=== PATIENT | female | born 1965 | race Caucasian/White ===

== ENCOUNTER 2017-11-25 16:30 | Emergency (ER) | payer BC ==
[2017-11-25] MEDS ORDERED: NORMAL SALINE 1000 ML 500 ML IV ONE (18:17)
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
[2017-11-25 18:29] LABS: PROTHROMBIN TIME 13.7 SEC (11.4-15.4)
[2017-11-25 18:40] LABS: ABSOLUTE EOSINOPHILS # (AUTO) 0.1 10^3/uL (0.0-0.6); ABSOLUTE LYMPHOCYTES (AUTO) 1.1 10^3/uL (0.5-4.7); ABSOLUTE MONOCYTES (AUTO) 0.2 10^3/uL (0.1-1.4); ABSOLUTE NEUT (AUTO) 2.4 10^3/uL (1.7-8.2); BASOPHILS % (AUTO) 0.6 % (0-2); EOSINOPHILS % (AUTO) 3.4 % (0-6); HEMATOCRIT 34.2 % (36.0-47.0); HEMOGLOBIN 11.4 g/dL (12.0-15.5); LYMPHOCYTES % (AUTO) 28.3 % (13-45); MEAN CORPUSCULAR HEMOGLOBIN 26.8 pg (27.0-33.4); MEAN CORPUSCULAR HGB CONC 33.3 g/dL (32.0-36.0); MEAN CORPUSCULAR VOLUME 81 fl (80-97); MONOCYTES % (AUTO) 5.9 % (3-13); PLATELET COUNT 134 10^3/uL (150-450); RED BLOOD COUNT 4.25 10^6/uL (3.72-5.28); RED CELL DISTRIBUTION WIDTH 14.1 % (11.5-14.0); SEGMENTED NEUTROPHILS % (AUTO) 61.8 % (42-78); TOTAL CELLS COUNTED % (AUTO) 100 %; WHITE BLOOD COUNT 3.8 10^3/uL (4.0-10.5)
[2017-11-25 18:54] LABS: ALANINE AMINOTRANSFERASE 21 U/L (9-52); ALBUMIN 3.7 g/dL (3.5-5.0); ALKALINE PHOSPHATASE 91 U/L (38-126); ANION GAP 14 (5-19); ASPARTATE AMINO TRANSFERASE 21 U/L (14-36); BILIRUBIN,DIRECT 0.3 mg/dL (0.0-0.4); BILIRUBIN,TOTAL 0.3 mg/dL (0.2-1.3); BLOOD UREA NITROGEN 20 mg/dL (7-20); CALCIUM 9.6 mg/dL (8.4-10.2); CARBON DIOXIDE 24 mmol/L (22-30); CHLORIDE 109 mmol/L (98-107); GLUCOSE 120 mg/dL (75-110); POTASSIUM 3.9 mmol/L (3.6-5.0); SODIUM 146.5 mmol/L (137-145); TOTAL PROTEIN 6.4 g/dL (6.3-8.2)
[2017-11-25 18:57] LABS: ACETAMINOPHEN < 10 ug/mL (10-30); SALICYLATE < 1.0 mg/dL (2.0-20.0)
[2017-11-25 19:04] LABS: URINE AMPHETAMINES SCREEN NEGATIVE; URINE BARBITURATES SCREEN NEGATIVE; URINE BENZODIAZEPINES SCREEN UNCONFIRMED POSITIVE; URINE COCAINE SCREEN NEGATIVE; URINE METHADONE SCREEN NEGATIVE; URINE PHENCYCLIDINE SCREEN NEGATIVE
[2017-11-25 19:16] LABS: URINE MARIJUANA (THC) SCREEN NEGATIVE
--- NOTE | 2017-11-25 20:38 | EKG REPORT ---
SEVERITY:- BORDERLINE ECG - SINUS RHYTHM BORDERLINE T ABNORMALITIES, ANT-LAT LEADS : Confirmed by: Naresh Dao MD 25-Nov-2017 20:37:41
--- NOTE | 2017-11-26 07:26 | EKG REPORT ---
SEVERITY:- BORDERLINE ECG - SINUS RHYTHM BORDERLINE T ABNORMALITIES, ANT-LAT LEADS : Confirmed by: Naresh Dao MD 26-Nov-2017 07:25:19
[2017-11-26] MEDS ORDERED: IBUPROFEN 600 MG TABLET PO ONE (07:56)
--- NOTE | 2017-11-26 09:33 | ER Document Report ---
Doctor's Note Notes: 11/26/17 09:30 52-year-old female with admission yesterday secondary to allegedly around 3:30 PM ingesting what was estimated to be #82 mg Xanax tablets, #30 Ambien tablets and #27 unknown milligram strength Prozac tablets. Vital signs are stable. Labs as recorded. We are awaiting psychology/psychiatry evaluation. 11/26/17 11:41 Patient was attempted to change the channel and slipped falling on her knees with a laceration to her left knee. She has a prosthetic knee to the right knee. A sitter was present. No head trauma noted. Tetanus is not up-to-date. We will perform x-rays of bilateral knees and suture the left knee appropriately. 11/26/17 13:47 PROCEDURE: Using 4-0 Prolene I prepped and draped the area and irrigated with 500 cc of normal saline. I used ChloraPrep to clean the area. I do not see any foreign bodies. I then used 4-0 Prolene after numbing the area with 1% lidocaine with epinephrine and placed 4 interrupted sutures to the left knee. Knee laceration has been repaired.
[2017-11-26] MEDS ORDERED: LIDOCAINE 1%/EPINEPHRINE INJ 20 ML VIAL INJ ONE (11:40)
[2017-11-26] MEDS ORDERED: DIPH/PERTUSS(ACELL)/TETANUS VAC/PF 0.5 ML SYR (>=10YO) IM ONE (11:40)
--- NOTE | 2017-11-26 12:32 | RADIOLOGY REPORT (SQ) ---
EXAM DESCRIPTION: KNEE RIGHT 4 VIEWS COMPLETED DATE/TIME: 11/26/2017 12:18 pm REASON FOR STUDY: 46, fall COMPARISON: None. NUMBER OF VIEWS: Four views. TECHNIQUE: AP, lateral, and both oblique radiographic images acquired of the right knee. LIMITATIONS: None. FINDINGS: MINERALIZATION: Normal. BONES: No acute fracture or dislocation. JOINT: Arthroplasty in place. Some lucency about the femoral portion. SOFT TISSUES: No opaque foreign bodies of the soft tissues. OTHER: No other significant finding. IMPRESSION: Arthroplasty right knee. No acute fractures. TECHNICAL DOCUMENTATION: JOB ID: [id number] [employer]- All Rights Reserved Reading location - IP/workstation name: [email or web address]
--- NOTE | 2017-11-26 12:34 | RADIOLOGY REPORT (SQ) ---
EXAM DESCRIPTION: KNEE LEFT 4 VIEW COMPLETED DATE/TIME: 11/26/2017 12:18 pm REASON FOR STUDY: 46, fall COMPARISON: None. NUMBER OF VIEWS: Four views. TECHNIQUE: AP, lateral, and both oblique radiographic images acquired of the left knee. LIMITATIONS: None. FINDINGS: MINERALIZATION: Normal. BONES: No acute fracture or dislocation. No worrisome bone lesions. JOINT: Joint spaces well-maintained. SOFT TISSUES: No opaque foreign bodies of the soft tissues. OTHER: No other significant finding. IMPRESSION: Nothing acute. No fracture identified. TECHNICAL DOCUMENTATION: JOB ID: [id number] [employer]- All Rights Reserved Reading location - IP/workstation name: [email or web address]
[2017-11-26] MEDS: OLANZAPINE 5 MG TABLET PO SCH ×2 (13:00→18:30)
[2017-11-26] MEDS: BENZTROPINE MESYLATE 1 MG TABLET PO SCH (13:00)
[2017-11-26] MEDS ORDERED: BACITRACIN ZINC OINTMENT 15 GM TP ONE (13:48)
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
[2017-11-27] MEDS: CHLORPROMAZINE HCL 50 MG TABLET PO PRN ×2 (01:06→22:04)
[2017-11-27] MEDS ORDERED: BENZTROPINE MESYLATE 1 MG TABLET PO ONE (10:15)
[2017-11-27] MEDS ORDERED: OLANZAPINE 5 MG TABLET PO ONE ×2 (10:15→18:00)
--- NOTE | 2017-11-27 10:15 | ER Document Report ---
Doctor's Note Notes: 11/27/17 10:13 Rounds: Chart reviewed and patient interviewed. Patient being evaluated for taking a drug overdose. She says that she took 82 Xanax, 30 Ambien, and 27 Prozac. She is ambulatory and shows no signs of an overdose at this time. Patient says it did name seem to phase her. I question if she took anywhere near the amount of pills that she said. Patient complains of feeling depressed. Labs were all essentially normal except for being positive for benzos in her urine drug screen. Vital signs were all essentially normal. Blood pressure was 100/57, the patient does not exhibit signs of shock. Patient appears to be medically stable for transfer or discharge. Paddy Paris MD
--- NOTE | 2017-11-27 17:00 | PSYCHOLOGICAL NOTE ---
Psych Note - Psych Note Psych Note: Reason for consult: intentional overdose, suicidal ideation consent permissions: Janel, daughter, 52-year-old female presents with overdose. No history somewhat limited as patient is altered. Allegedly around 3:30 PM or so, patient ingested what is estimated to be #82 mg Xanax tablets, #30 Ambien tablets and #27 unknown milligram strength Prozac tablets. Patient did this and he stated attempted suicide. Clinician conducted checking with patient Patient is awoken by clinician. Patient proceeded to become very tearful stating that she had no reason to live. Patient starts discussing how she is upset that her daughter has someone just like her father. Clinician was notified by attending nurse that patient was attempting to stab herself with her fork from lunch. Behavior health team spoke with patient's daughter, Janel, who discloses that she will be able to arrive at [facility] ED on Friday. Patient's daughter is taking board exams on Friday (tomorrow). Medication recommendations per [facility]'s contracted psychiatrist Dr. Aubrie MD are as follows: 1. Zyprexa 5 mg twice daily for mood stabilization 2. Cogentin 1 mg daily for prevention of any possible side effects from Zyprexa 3. Thorazine 50 mg every 8 hours as needed for aggression and agitation Diagnosis 296.80 (F31.9) unspecified bipolar and related disorder 293.83 (F06.34) Depressive disorder due to another medical Condition; major depressive-like episode 209.81 (F343.10) post manic stress disorder per history provided by patient 291.9 (F10.99) unspecified alcohol related disorder; 2 years sober Impression/plan: Patient is recommended to continue under IVC. While patient is demonstrating some improvement in presentation patient is not stable and has moments of attempting self-harm. Multiple referrals to psychiatric hospitals have been submitted. Dr. Domingo was consulted on the care and management of this patient; attending physician is in agreement with recommendations and disposition.
--- NOTE | 2017-11-28 10:14 | ER Document Report ---
Doctor's Note Notes: 11/28/17 10:13 Rounds: Chart reviewed and patient sleeping soundly so not awakened. Patient's vital signs have been stable. Her blood pressures run a slight bit low, most recent being 102/58. Labs were all essentially normal. Patient has recovered from her overdose. Patient appears to be medically stable for transfer or discharge. Patient remains under IVC at this time. Paddy Paris MD 11/28/17 11:29 Patient's blood pressure reportedly in the 90s, but patient is asymptomatic. I encouraged the patient to drink lots of fluids, but she says she cannot do it so we are going to run 2 L of saline and IV. Patient does not appear clinically to be in any form of shock. Paddy Paris MD
[2017-11-28] MEDS: BENZTROPINE MESYLATE 1 MG TABLET PO SCH (10:54)
[2017-11-28] MEDS: OLANZAPINE 5 MG TABLET PO SCH ×2 (10:54→17:55)
--- NOTE | 2017-11-28 12:59 | PSYCHOLOGICAL NOTE ---
Psych Note - Psych Note Psych Note: Reason for consult: intentional overdose, suicidal ideation consent permissions: Janel, daughter, 52-year-old female presents with overdose. No history somewhat limited as patient is altered. Allegedly around 3:30 PM or so, patient ingested what is estimated to be #82 mg Xanax tablets, #30 Ambien tablets and #27 unknown milligram strength Prozac tablets. Patient did this and he stated attempted suicide. Clinician conducted checking with patient Patient is awoken by clinician. Patient proceeded to become very tearful stating that she had no reason to live. Patient starts discussing how she is upset that her daughter has someone just like her father. Clinician was notified by attending nurse that patient was attempting to stab herself with her fork from lunch. Behavior health team spoke with patient's daughter, Janel, who discloses that she will be able to arrive at [facility] on Friday. Patient's daughter is taking board exams on Friday (tomorrow). Medication recommendations per [facility]'s contracted psychiatrist Dr. Aubrie MD are as follows: 1. Zyprexa 5 mg twice daily for mood stabilization 2. Cogentin 1 mg daily for prevention of any possible side effects from Zyprexa 3. Thorazine 50 mg every 8 hours as needed for aggression and agitation Diagnosis 296.80 (F31.9) unspecified bipolar and related disorder 293.83 (F06.34) Depressive disorder due to another medical Condition; major depressive-like episode 209.81 (F343.10) post manic stress disorder per history provided by patient 291.9 (F10.99) unspecified alcohol related disorder; 2 years sober Impression/plan: Patient is recommended to continue under IVC. While patient is demonstrating some improvement in presentation patient is not stable and has moments of attempting self-harm. Multiple referrals to psychiatric hospitals have been submitted. Dr. Domingo was consulted on the care and management of this patient; attending physician is in agreement with recommendations and disposition.
--- NOTE | 2017-11-28 16:37 | PSYCHOLOGICAL NOTE ---
Psych Note - Psych Note Psych Note: Reason for consult: intentional overdose, suicidal ideation consent permissions: Janel, daughter, 52-year-old female presents with overdose. No history somewhat limited as patient is altered. Allegedly around 3:30 PM or so, patient ingested what is estimated to be #82 mg Xanax tablets, #30 Ambien tablets and #27 unknown milligram strength Prozac tablets. Patient did this and he stated attempted suicide. Clinician conducted checking with patient Clinician notes patient's presentation is greatly improved. Patient does not become tearful and is able to carry on a linear and organized conversation. Patient does disclose that she is been having a very difficult time while living with her other daughter. Patient reports "I do not want to I just want to be able to go home and stay with my other daughter (Janel)." Patient was able to discuss that her daughter Janel is currently taking a bar exam and will be driving to [facility] ED tomorrow. Patient has showered and while patient was talking with clinician attending nurse was working on getting knots out of the patient's hair; patient was sitting very calmly during that process. Medication recommendations per [facility]'s contracted psychiatrist Dr. Aubrie MD are as follows: 1. Zyprexa 5 mg twice daily for mood stabilization 2. Cogentin 1 mg daily for prevention of any possible side effects from Zyprexa 3. Thorazine 50 mg every 8 hours as needed for aggression and agitation- Please hold for blood pressure concerns Diagnosis 296.80 (F31.9) unspecified bipolar and related disorder 293.83 (F06.34) Depressive disorder due to another medical Condition; major depressive-like episode 209.81 (F343.10) post manic stress disorder per history provided by patient 291.9 (F10.99) unspecified alcohol related disorder; 2 years sober Impression/plan: Patient is recommended to continue under IVC. Patient has demonstrated positive improvement with forward thinking of wanting to go and live with her other daughter Janel. Patient did not become tearful and was able to carry on organized linear conversation. Patient's daughter Janel will be driving from [place] and will arrive tomorrow at [facility] ED for possible discharge plan. Multiple referrals to psychiatric hospitals have been submitted. Dr. Domingo was consulted on the care and management of this patient ; attending physician is in agreement with recommendations and disposition.
[2017-11-28] MEDS ORDERED: FAMOTIDINE 20 MG TABLET PO ONE (22:01)
[2017-11-28] MEDS ORDERED: ACETAMINOPHEN 325 MG TABLET PO ONE (22:01)
--- NOTE | 2017-11-29 09:51 | ER Document Report ---
Doctor's Note Notes: 11/29/17 09:50 This is a follow-up evaluation: Primary diagnosis-suicidal ideation Patient is here for the above reason, has been doing well, currently has -- yeast infection involving under the breast and groin complaint. On examination-vitals reviewed in the chart. General exam: Alert oriented 3 not in any acute distress HEENT: Normocephalic atraumatic pupils are equal reactive to light, Lungs-clear breath sounds no rales or wheezing. Cardiovascular system: Normal S1-S2 no murmurs. Gastrointestinal: Normal breath sounds, no organomegaly positive bowel sounds. Genitourinary: Skin: Tinea corporis under the breast Psychiatric: Diagnoses: Suicidal, yeast infection, tinea corporis Plan: Waiting for mental health evaluation to release, discharge plan to go home. Prescription for yeast infection.
[2017-11-29] MEDS ORDERED: CLOTRIMAZOLE/BETAMETHASONE DIP CREAM 15 GM TOP ONE (09:52)
[2017-11-29] MEDS: BENZTROPINE MESYLATE 1 MG TABLET PO SCH (10:40)
[2017-11-29] MEDS: OLANZAPINE 5 MG TABLET PO SCH (10:40)
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
[2017-11-29 16:53] VITALS: BP 116/92
== END 2017-11-29 16:53 | disposition home or self-care (01) ==
LOC: ER 16:30
PROC: 0HQLXZZ Repair Left Lower Leg Skin, External Approach (ICD-10-PCS; principal; 2017-11-25)
DX: T42.4X2A Poisoning by benzodiazepines, intentional self-harm, initial encounter (principal); T42.6X2A Poisoning by other antiepileptic and sedative-hypnotic drugs, intentional self-harm, initial encounter; T43.222A Poisoning by selective serotonin reuptake inhibitors, intentional self-harm, initial encounter; F43.10 Post-traumatic stress disorder, unspecified; F31.9 Bipolar disorder, unspecified; X58.XXXA Exposure to other specified factors, initial encounter; S81.011A Laceration without foreign body, right knee, initial encounter; W01.0XXA Fall on same level from slipping, tripping and stumbling without subsequent striking against object, initial encounter; Y92.230 Patient room in hospital as the place of occurrence of the external cause
CPT/HCPCS: 93005; 99285; 90471; 36415; 80307 ×4; 85025; 85610; 80053; 73562; 73564; 90715; 93010; 12001; J3490 ×2; J7030